=== PATIENT | female | born 1990 | race Caucasian/White ===

== ENCOUNTER 2016-09-03 03:27 | Emergency (ER) | payer OTHER ==
--- NOTE | 2016-09-03 05:20 | ED CLINICAL REPORT ---
Clinical Report - Physicians/Mid Levels [facility] [address] [place] [address] 09/03/2016 3:29 Patient: NIKITA HOOD Time Seen: 03:59. Arrived- By private vehicle. Historian- patient. HISTORY OF PRESENT ILLNESS Chief Complaint: ABDOMINAL PAIN. It is described as "pain" and it is described as located in the upper abdomen. At its maximum, severity described as 8 / 10. When seen in the E.D., severity described as 8 / 10. This started last night and is still present. It was abrupt in onset and has been constant and waxing/waning. The patient has had nausea and loss of appetite. No vomiting or diarrhea. No recent travel. Similar symptoms previously: Several times. Diagnosis: urinary tract infection. REVIEW OF SYSTEMS Last normal menstrual period- 1 month ago. No constipation or black stools. Last bowel movement: yesterday. She is not breast feeding. All systems otherwise negative, except as recorded above. PAST HISTORY PCP - Drown. Problems: Hepatitis C carrier. Hepatitis. Additional Surgeries: . Medications: Methadone HCl Oral 142mg, daily. Allergies: No Known Drug Allergy. SOCIAL HISTORY Current every day heavy tobacco smoker (cigarette)- less than 1 pack per day. FAMILY HISTORY Denies family medical history. ADDITIONAL NOTES The nursing notes have been reviewed. PHYSICAL EXAM Vital Signs: 09/03/2016 03:50 BP: 125/72. HR: 61. RR: 16. O2 saturation: 98%. Temp: 98.8 F. Pain level now: 8/10. Have been reviewed. Appearance: Alert. Eyes: Pupils equal, round and reactive to light. ENT: Pharynx normal. Neck: Normal inspection. Neck supple. CVS: Normal heart rate and rhythm. Heart sounds normal. Respiratory: No respiratory distress. Breath sounds normal. Abdomen: Soft and nontender. Bowel sounds normal. No organomegaly. No mass. Back: Normal inspection. Skin: Skin warm and dry. Normal skin color. Normal skin turgor. Extremities: Extremities exhibit normal ROM. No lower extremity edema. LABS, X-RAYS, AND EKG Laboratory Tests: UA-Culture if indicated: (CATHRYN: 09/03/2016 04:00) ( [facility] [place] 09/03/2016 04:43) Final results Test Result Flag Units (Reference) URINE COLOR YELLOW URINE APPEARANCE CLEAR URINE GLUCOSE NEGATIVE (NEGATIVE) URINE BILIRUBIN NEGATIVE (NEGATIVE) URINE KETONE NEGATIVE (NEGATIVE) URINE SPECIFIC GRAVITY 1.020 (1.010-1.030) URINE PH 7.0 (5.0-8.0) URINE PROTEIN NEGATIVE (NEGATIVE) URINE UROBILINOGEN 0.2 EU/dL (0.2-1.0) URINE NITRITE NEGATIVE (NEGATIVE) URINE BLOOD NEGATIVE (NEGATIVE) URINE LEUK ESTERASE NEGATIVE (NEGATIVE) URINE RBC 0-1 rbc/hpf (0-1) URINE WBC 0-1 wbc/hpf (0-1) URINE EPITHELIAL CELLS 0-1 EPI/hpf (0-5) URINE BACTERIA NONE SEEN (NONE SEEN) URINE COMMENT CULT NOT INDICATED URINE CULTURES ARE SET-UP BASED ON THE FOLLOWING CRITERIA:POSITIVE NITRITEPOSITIVE LEUKOCYTE ESTERASEGREATER THAN 10 WHITE BLOOD CELLSMODERATE (2+) OR GREATER BACTERIA Urine: (CATHRYN: 09/03/2016 04:00) ( [facility] 09/03/2016 04:47) Final results Test Result Flag Units (Reference) URINE NEGATIVE CBC w Diff: (CATHRYN: 09/03/2016 04:30) ( [facility] [place] 09/03/2016 04:41) Final results Test Result Flag Units (Reference) WHITE BLOOD COUNT 8.2 K/uL (4.5-11.5) RED BLOOD COUNT 5.55 H M/uL (4.00-5.20) HEMOGLOBIN 16.1 H gm/dL (12.0-16.0) HEMATOCRIT 49.1 H % (36.0-46.0) MEAN CELL VOLUME 89 fL (80-100) MEAN CORPUSCULAR HGB 29 pg (26-34) MEAN CORPUSCULAR HGB CONC 33 g/dL (31-37) RED CELL DISTRIBUTION WIDTH 14.1 % (11.6-14.8) PLATELET COUNT 237 K/uL (150-400) NEUTROPHIL % 56.4 % (50-75) LYMPH % 32.3 % (25-40) MONO % 4.6 % (3-14) EOSINOPHIL % 6.0 H % (0-4) BASOPHIL % 0.7 % (0-2) Urine Drug Screen: (CATHRYN: 09/03/2016 04:00) ( [facility] [place]/03/2016 04:59) Final results Test Result Flag Units (Reference) AMPHETAMINE/METHAMPHETAMINE NEGATIVE (NEGATIVE) BARBITURATE NEGATIVE (NEGATIVE) BENZODIAZEPINE NEGATIVE (NEGATIVE) CANNABINOID NEGATIVE (NEGATIVE) COCAINE NEGATIVE (NEGATIVE) ECSTASY NEGATIVE (NEGATIVE) METHADONE POSITIVE H (NEGATIVE) OPIATE NEGATIVE (NEGATIVE) The urine drug screen is a qualitative screening test fordrug overdose and abuse. All screen results should beconsidered as presumptive.Drugs screened for are as follows:BenzodiazepinesCocaineAmphetamines/MetamphetaminesTHC (Tetrahydrocannabinol)OpiatesBarbituratesEcstasyMethadonePositive results are unconfirmed. For confirmation, notifythe lab for the specimen to be sent to the reference lab.All confirmations must be performed by a differentmethodology.The ingestion of natural herbal and plant productscontaining Ephedra/Ephedra metabolites can produce in urineone or more substances capable of cross reacting withamphetamine/methamphetamine immunoassays. These testsprovide a preliminary result only. A more specificalternative chemical method must be used to obtain aconfirmed analytical result. CMP: (CATHRYN: 09/03/2016 04:30) ( [facility] [place] 09/03/2016 04:58) Final results Test Result Flag Units (Reference) GLUCOSE 93 mg/dL (70-110) BUN 17 mg/dL (7-18) CREATININE 0.8 mg/dL (0.6-1.3) Estimated GFR >60 mL/min Estimated GFR- >60 mL/min Note: Persistent reduction over 3 months in eGFR<60 mL/min/1.73 m2 defines CKD. Patients with eGFR values>=60 mL/min/1.73 m2 may also have CKD if evidence ofpersistent proteinuria. Additional information may be foundat www.kidney.org. SODIUM 142 mmol/L (136-145) POTASSIUM 4.2 mmol/L (3.5-5.1) CHLORIDE 107 mmol/L (98-107) CARBON DIOXIDE 25 mmol/L (21-32) CALCIUM 9.4 mg/dL (8.5-10.1) TOTAL PROTEIN 7.2 g/dL (6.4-8.2) ALBUMIN 3.7 g/dL (3.3-5.0) BILIRUBIN, TOTAL 0.4 mg/dL (0.0-1.0) ALKALINE PHOSPHATASE 58 U/L (46-116) AST (SGOT) 18 U/L (15-37) ALT (SGPT) 26 U/L (12-78) LIPASE 82 U/L (73-393) AMYLASE 29 U/L (25-115) . PROGRESS AND PROCEDURES Course of Care: 05:20 09/03/16. I review the results the patient's studies with her. We discussed potential benefits and risks of CT imaging. After this discussion, the patient requested that CT imaging not be performed. She acknowledges the risk of a missed or erroneous diagnosis. However, she says that she is feeling better, has no further pain and her abdomen was nontender on examination. The patient's symptoms are now gone. Vital signs have been reviewed. Alert. No acute distress. Breath sounds normal. No respiratory distress. Normal heart rate and rhythm. Heart sounds normal. Abdomen soft and nontender. Skin warm and dry. Patient/family counseled. Old medical records reviewed. Disposition: Discharged. Condition: stable. CLINICAL IMPRESSION Acute abdominal pain of unknown cause, now resolved. Possible acute gastritis INSTRUCTIONS Drink plenty of fluids. Avoid alcohol and NSAIDS. NSAIDS include aspirin, ibuprofen (Advil) and naproxen (Aleve). Avoid salty and spicy foods. Warnings: GENERAL WARNINGS: Return or contact your physician immediately if your condition worsens or changes unexpectedly, if not improving as expected, or if other problems arise. Prescription Medications: Prilosec 20 mg capsules: Take 1 capsule orally once daily. Dispense fifteen (15). No refills. Substitution is permissible. Follow-up: Follow up with your doctor tomorrow. Call for an appointment. Follow up with a soaker soda worker- as recommended by your primary care physician. Understanding of the discharge instructions verbalized by patient. (Electronically signed by Yves Guadalupe MD 09/03/2016 7:55)
--- NOTE | 2016-09-03 05:20 | ED NURSING NOTES ---
Clinical Report - Nurses [facility] [address] [place] [address] 09/03/2016 3:29 Patient: NIKITA HOOD TRIAGE Triage time 03:50. Acuity: LEVEL 3. Chief Complaint: ABDOMINAL PAIN and NAUSEA. 03:56. Alert. --03:57 Leif Vora R.N. 03:50 09/03/16. BP: 125/72. HR: 61. RR: 16. O2 saturation: 98% on room air. Temp: 98.8 F. Pain level now: 03/20. --03:57 Leif Vora R.N. Weight: 68 kg stated. Height/Length: 65 inches Per Patient. BMI: 25. --03:54 Leif Vora R.N. Medications Methadone HCl Oral 142mg, daily. --03:53 Leif Vora R.N. Medication/allergy information source: the patient. --03:57 Leif Vora R.N. Allergies No Known Drug Allergy. --03:53 Leif Vora R.N. History Arrived by private vehicle. Historian: patient. Unaccompanied. Primary physician (Lauren). This started last night. ( Patient reports bilateral lower quadrant ABD pain that started last night). Treatment VISITOR SERVICE ASSISTANT: None. PAST MEDICAL HX: Immunizations: up-to-date. Last normal menstrual period was 4 weeks ago. SOCIAL HX: Current every day heavy tobacco smoker- less than 1 pack per day. No alcohol use or drug use. No recent travel. No infectious disease exposure. ABUSE ASSESSMENT: No report of abuse. FALL RISK ASSESSMENT: Fall risk assessment completed. No fall risk identified. NUTRITIONAL RISK ASSESSMENT: The nutritional risk assessment revealed no deficiencies. FUNCTIONAL ASSESSMENT: Functional assessment: no impairments noted. LEARNING NEEDS ASSESSMENT: The learning needs assessment revealed no barriers. SKIN INTEGRITY ASSESSMENT: Skin integrity risk assessment completed. No skin integrity risk identified. --03:57 Leif Vora R.N. PROBLEMS: Hepatitis. --03:54 Leif Vora R.N. ADDITIONAL SURGERIES: . --03:54 Leif Vora R.N. Interventions ID band on patient. To treatment room. --03:57 Leif Vora R.N. PHYSICAL ASSESSMENT 03:48. Ambulatory to room. Patient gowned. GENERAL / NEURO / PSYCH: Alert. Oriented X 4. HEENT: Mucous membranes are pink. RESPIRATORY: Respirations not labored. GI / : Abdomen soft. Bowel sounds within normal limits. SKIN: Skin is warm and dry. --03:57 Leif Vora R.N. NURSING PROGRESS NOTES 03:48. Patient ID band checked for patient name and birthdate: patient confirmed. Clean catch urine collected with return of yellow-colored clear urine; sample sent to lab for urinalysis and HCG. Specimen labeled in the presence of the patient. --03:58 Leif Vora R.N. 04:27 09/03/2016 Two (2) unsuccessful IV access attempts including the right forearm and left antecubital space. --04:37 Leif Vora R.N. 04:32 09/03/2016 Site #1 started via IV in the left forearm with an 22g angiocath, with aseptic technique and good blood return. Blood drawn: rainbow set. Labeled in the presence of the patient and sent to the lab. Saline lock flushed with 10 mL saline (by Adry SHEPPARD). --04:38 Leif Vora R.N. 04:34 09/03/2016 Started bag #1 1000 mL IV Fluids IV NS (Saline); at 500 mL/hr over 2 hour(s) via site #1 --04:39 Leif Vora R.N. 04:35 09/03/2016 Zofran (Ondansetron HCl) IVP 4 mg given over 2 minute(s) via site #1. Allergies verified and confirmed 5 rights. IV patency established. IV site checked: no pain, redness, or swelling. IV flushed thoroughly pre- and post-medication administration. --04:40 Leif Vora R.N. 04:37 09/03/2016 PROTONIX 40MG (Pantoprazole Sodium) IVP 40 mg given over 2 minute(s) via site #1. Allergies verified and confirmed 5 rights. IV patency established. IV site checked: no pain, redness, or swelling. IV flushed thoroughly pre- and post-medication administration. --04:42 Leif Vora R.N. 05:22. The patient is calm and resting quietly. Overall patient status is improved- she states feels better. SKIN: Skin is warm and dry. Skin color within normal limits. --05:25 Leif Vora R.N. DISPOSITION / DISCHARGE 05:18 09/03/2016 IV Fluids IV NS Discontinued: bag #1 STOPPED upon discharge. Total amount infused: 450 mL. IV patency established. IV site checked: no pain, redness, or swelling. IV flushed thoroughly. --05:22 Leif Vora R.N. 05:19 09/03/2016 Site #1 removed upon discharge. Catheter intact. Bandage applied. --05:22 Leif Vora R.N. Departure time: 05:24. Condition at departure: stable. No learning barriers present. Discharge instructions provided and reviewed with the patient. Reviewed medication(s) side effects, precautions, dosing and course information. Prescription(s) given to the patient. Patient verbalized understanding. Written instructions provided in French. The patient was discharged home and unaccompanied at time of discharge. She left the Emergency Department ambulatory and via private vehicle. Patient driving. FALL RISK ASSESSMENT: Fall risk assessment completed. No fall risk identified. --05:25 Leif Vora R.N. 05:20 09/03/16. BP: 95/67. HR: 62. RR: 15. O2 saturation: 100%. Pain level now: 08/20. --05:25 Leif Vora R.N. Locked/Released at 09/03/2016 5:25 by Leif Vora R.N.
--- NOTE | 2016-09-03 05:20 | ED ORDER SUMMARY ---
..... Patient: NIKITA HOOD OrderSheet [facility] VisitID: [id number] [place] [address] 26y, F Registration Date/Time: 09/03/2016 ORDER SHEET Weight: 68.0 kg (stated) Allergies: No Known Drug Allergy GENERAL ORDERS: CBC w Diff Urgent (04:09/03/2016 Hardeep QUISPE) (Ack 4:01 LMuller) (4:42 JQuivey R.N.) CMP Urgent (04:09/03/2016 Hardeep QUISPE) (Ack 4:01 LMuller) (4:42 JQuivey R.N.) UA-Culture if indicated Urgent (:09/03/2016 Hardeep QUISPE) (Ack 4:01 LMuller) (4:42 JQuivey R.N.) Amylase Urgent (04:09/03/2016 Hardeep QUISPE) (Ack 4:01 LMuller) (4:42 JQuivey R.N.) Lipase Urgent (04:09/03/2016 Hardeep QUISPE) (Ack 4:01 LMuller) (4:42 JQuivey R.N.) Urine Urgent (04:09/03/2016 Hardeep QUISPE) (4:42 JQuivey R.N.) Urine Drug Screen Urgent (04:38 09/03/2016 Hardeep QUISPE) (4:42 JQuivey R.N.) MEDICATION ORDERS: IV FLUIDS: IV NS : initial bolus 500 mL (1000 mL/hr), then 125 mL/hr for 4h (NOW); Urgent (04:09/03/2016 Hardeep QUISPE) (Ack 4:20 RCollier R.N.) (4:39 JQuivey R.N.) Zofran IV 4 mg (NOW) (04:09/03/2016 Hardeep QUISPE) (Ack 4:20 RCollier R.N.) (4:40 JQuivey R.N.) IV Saline Lock (04:09/03/2016 Hardeep QUISPE) (Ack 4:20 RCollier R.N.) (4:38 Evan Nelson) Protonix IVP 40mg 40 mg (Mix in NS 10ml over 2min) (04:07 09/03/2016 Hardeep QUISPE) (Ack 4:20 Leena Nelson) (4:42 Evan Nelson) ORDER SHEET NOTES: [Electronically signed by Leif Vora R.N. (05:25 09/03/2016)] [Electronically signed by Yves Guadalupe MD (07:55 09/03/2016)] [Electronically locked/signed by Leif Vora R.N. (05:25 09/03/2016)]
--- NOTE | 2016-09-03 05:20 | ED ORDER SUMMARY ---
..... Patient: NIKITA HOOD OrderSheet [facility] VisitID: [id number] [place] [address] 26y, F Registration Date/Time: 09/03/2016 ORDER SHEET Weight: 68.0 kg (stated) Allergies: No Known Drug Allergy GENERAL ORDERS: CBC w Diff Urgent (04:09/03/2016 Hardeep QUISPE) (Ack 4:01 LMuller) (4:42 JQuivey R.N.) CMP Urgent (04:09/03/2016 Hardeep QUISPE) (Ack 4:01 LMuller) (4:42 JQuivey R.N.) UA-Culture if indicated Urgent (:09/03/2016 Hardeep QUISPE) (Ack 4:01 LMuller) (4:42 JQuivey R.N.) Amylase Urgent (04:09/03/2016 Hardeep QUISPE) (Ack 4:01 LMuller) (4:42 JQuivey R.N.) Lipase Urgent (04:09/03/2016 Hardeep QUISPE) (Ack 4:01 LMuller) (4:42 JQuivey R.N.) Urine Urgent (04:09/03/2016 Hardeep QUISPE) (4:42 JQuivey R.N.) Urine Drug Screen Urgent (04:38 09/03/2016 Hardeep QUISPE) (4:42 JQuivey R.N.) MEDICATION ORDERS: IV FLUIDS: IV NS : initial bolus 500 mL (1000 mL/hr), then 125 mL/hr for 4h (NOW); Urgent (04:09/03/2016 Hardeep QUISPE) (Ack 4:20 RCollier R.N.) (4:39 JQuivey R.N.) Zofran IV 4 mg (NOW) (04:09/03/2016 Hardeep QUISPE) (Ack 4:20 RCollier R.N.) (4:40 JQuivey R.N.) IV Saline Lock (04:09/03/2016 Hardeep QUISPE) (Ack 4:20 RCollier R.N.) (4:38 Evan Nelson) Protonix IVP 40mg 40 mg (Mix in NS 10ml over 2min) (04:07 09/03/2016 Hardeep QUISPE) (Ack 4:20 Leena Nelson) (4:42 Evan Nelson) ORDER SHEET NOTES: [Electronically signed by Leif Vora R.N. (05:25 09/03/2016)] [Electronically signed by Yves Guadalupe MD (07:55 09/03/2016)] [Electronically locked/signed by Leif Vora R.N. (05:25 09/03/2016)]
--- NOTE | 2016-09-03 05:20 | ED CLINICAL REPORT ---
Clinical Report - Physicians/Mid Levels [facility] [address] [place] [address] 09/03/2016 3:29 Patient: NIKITA HOOD Time Seen: 03:59. Arrived- By private vehicle. Historian- patient. HISTORY OF PRESENT ILLNESS Chief Complaint: ABDOMINAL PAIN. It is described as "pain" and it is described as located in the upper abdomen. At its maximum, severity described as 8 / 10. When seen in the E.D., severity described as 8 / 10. This started last night and is still present. It was abrupt in onset and has been constant and waxing/waning. The patient has had nausea and loss of appetite. No vomiting or diarrhea. No recent travel. Similar symptoms previously: Several times. Diagnosis: urinary tract infection. REVIEW OF SYSTEMS Last normal menstrual period- 1 month ago. No constipation or black stools. Last bowel movement: yesterday. She is not breast feeding. All systems otherwise negative, except as recorded above. PAST HISTORY PCP - Drown. Problems: Hepatitis C carrier. Hepatitis. Additional Surgeries: . Medications: Methadone HCl Oral 142mg, daily. Allergies: No Known Drug Allergy. SOCIAL HISTORY Current every day heavy tobacco smoker (cigarette)- less than 1 pack per day. FAMILY HISTORY Denies family medical history. ADDITIONAL NOTES The nursing notes have been reviewed. PHYSICAL EXAM Vital Signs: 09/03/2016 03:50 BP: 125/72. HR: 61. RR: 16. O2 saturation: 98%. Temp: 98.8 F. Pain level now: 8/10. Have been reviewed. Appearance: Alert. Eyes: Pupils equal, round and reactive to light. ENT: Pharynx normal. Neck: Normal inspection. Neck supple. CVS: Normal heart rate and rhythm. Heart sounds normal. Respiratory: No respiratory distress. Breath sounds normal. Abdomen: Soft and nontender. Bowel sounds normal. No organomegaly. No mass. Back: Normal inspection. Skin: Skin warm and dry. Normal skin color. Normal skin turgor. Extremities: Extremities exhibit normal ROM. No lower extremity edema. LABS, X-RAYS, AND EKG Laboratory Tests: UA-Culture if indicated: (CATHRYN: 09/03/2016 04:00) ( [facility] [place] 04:43) Final results Test Result Flag Units (Reference) URINE COLOR YELLOW URINE APPEARANCE CLEAR URINE GLUCOSE NEGATIVE (NEGATIVE) URINE BILIRUBIN NEGATIVE (NEGATIVE) URINE KETONE NEGATIVE (NEGATIVE) URINE SPECIFIC GRAVITY 1.020 (1.010-1.030) URINE PH 7.0 (5.0-8.0) URINE PROTEIN NEGATIVE (NEGATIVE) URINE UROBILINOGEN 0.2 EU/dL (0.2-1.0) URINE NITRITE NEGATIVE (NEGATIVE) URINE BLOOD NEGATIVE (NEGATIVE) URINE LEUK ESTERASE NEGATIVE (NEGATIVE) URINE RBC 0-1 rbc/hpf (0-1) URINE WBC 0-1 wbc/hpf (0-1) URINE EPITHELIAL CELLS 0-1 EPI/hpf (0-5) URINE BACTERIA NONE SEEN (NONE SEEN) URINE COMMENT CULT NOT INDICATED URINE CULTURES ARE SET-UP BASED ON THE FOLLOWING CRITERIA:POSITIVE NITRITEPOSITIVE LEUKOCYTE ESTERASEGREATER THAN 10 WHITE BLOOD CELLSMODERATE (2+) OR GREATER BACTERIA Urine: (CATHRYN: 09/03/2016 04:00) ( [facility] 09/03/2016 04:47) Final results Test Result Flag Units (Reference) URINE NEGATIVE CBC w Diff: (CATHRYN: 09/03/2016 04:30) ( [facility] [place] 09/03/2016 04:41) Final results Test Result Flag Units (Reference) WHITE BLOOD COUNT 8.2 K/uL (4.5-11.5) RED BLOOD COUNT 5.55 H M/uL (4.00-5.20) HEMOGLOBIN 16.1 H gm/dL (12.0-16.0) HEMATOCRIT 49.1 H % (36.0-46.0) MEAN CELL VOLUME 89 fL (80-100) MEAN CORPUSCULAR HGB 29 pg (26-34) MEAN CORPUSCULAR HGB CONC 33 g/dL (31-37) RED CELL DISTRIBUTION WIDTH 14.1 % (11.6-14.8) PLATELET COUNT 237 K/uL (150-400) NEUTROPHIL % 56.4 % (50-75) LYMPH % 32.3 % (25-40) MONO % 4.6 % (3-14) EOSINOPHIL % 6.0 H % (0-4) BASOPHIL % 0.7 % (0-2) Urine Drug Screen: (CATHRYN: 09/03/2016 04:00) ( [facility]/[facility] 04:59) Final results Test Result Flag Units (Reference) AMPHETAMINE/METHAMPHETAMINE NEGATIVE (NEGATIVE) BARBITURATE NEGATIVE (NEGATIVE) BENZODIAZEPINE NEGATIVE (NEGATIVE) CANNABINOID NEGATIVE (NEGATIVE) COCAINE NEGATIVE (NEGATIVE) ECSTASY NEGATIVE (NEGATIVE) METHADONE POSITIVE H (NEGATIVE) OPIATE NEGATIVE (NEGATIVE) The urine drug screen is a qualitative screening test fordrug overdose and abuse. All screen results should beconsidered as presumptive.Drugs screened for are as follows:BenzodiazepinesCocaineAmphetamines/MetamphetaminesTHC (Tetrahydrocannabinol)OpiatesBarbituratesEcstasyMethadonePositive results are unconfirmed. For confirmation, notifythe lab for the specimen to be sent to the reference lab.All confirmations must be performed by a differentmethodology.The ingestion of natural herbal and plant productscontaining Ephedra/Ephedra metabolites can produce in urineone or more substances capable of cross reacting withamphetamine/methamphetamine immunoassays. These testsprovide a preliminary result only. A more specificalternative chemical method must be used to obtain aconfirmed analytical result. CMP: (CATHRYN: 09/03/2016 04:30) ( [facility] 09/03/2016 04:58) Final results Test Result Flag Units (Reference) GLUCOSE 93 mg/dL (70-110) BUN 17 mg/dL (7-18) CREATININE 0.8 mg/dL (0.6-1.3) Estimated GFR >60 mL/min Estimated GFR- >60 mL/min Note: Persistent reduction over 3 months in eGFR<60 mL/min/1.73 m2 defines CKD. Patients with eGFR values>=60 mL/min/1.73 m2 may also have CKD if evidence ofpersistent proteinuria. Additional information may be foundat www.kidney.org. SODIUM 142 mmol/L (136-145) POTASSIUM 4.2 mmol/L (3.5-5.1) CHLORIDE 107 mmol/L (98-107) CARBON DIOXIDE 25 mmol/L (21-32) CALCIUM 9.4 mg/dL (8.5-10.1) TOTAL PROTEIN 7.2 g/dL (6.4-8.2) ALBUMIN 3.7 g/dL (3.3-5.0) BILIRUBIN, TOTAL 0.4 mg/dL (0.0-1.0) ALKALINE PHOSPHATASE 58 U/L (46-116) AST (SGOT) 18 U/L (15-37) ALT (SGPT) 26 U/L (12-78) LIPASE 82 U/L (73-393) AMYLASE 29 U/L (25-115) . PROGRESS AND PROCEDURES Course of Care: 05:20 09/03/16. I review the results the patient's studies with her. We discussed potential benefits and risks of CT imaging. After this discussion, the patient requested that CT imaging not be performed. She acknowledges the risk of a missed or erroneous diagnosis. However, she says that she is feeling better, has no further pain and her abdomen was nontender on examination. The patient's symptoms are now gone. Vital signs have been reviewed. Alert. No acute distress. Breath sounds normal. No respiratory distress. Normal heart rate and rhythm. Heart sounds normal. Abdomen soft and nontender. Skin warm and dry. Patient/family counseled. Old medical records reviewed. Disposition: Discharged. Condition: stable. CLINICAL IMPRESSION Acute abdominal pain of unknown cause, now resolved. Possible acute gastritis INSTRUCTIONS Drink plenty of fluids. Avoid alcohol and NSAIDS. NSAIDS include aspirin, ibuprofen (Advil) and naproxen (Aleve). Avoid salty and spicy foods. Warnings: GENERAL WARNINGS: Return or contact your physician immediately if your condition worsens or changes unexpectedly, if not improving as expected, or if other problems arise. Prescription Medications: Prilosec 20 mg capsules: Take 1 capsule orally once daily. Dispense fifteen (15). No refills. Substitution is permissible. Follow-up: Follow up with your doctor tomorrow. Call for an appointment. Follow up with a marine steward- as recommended by your primary care physician. Understanding of the discharge instructions verbalized by patient. (Electronically signed by Yves Guadalupe MD 09/03/2016 7:55)
--- NOTE | 2016-09-03 07:56 | ED MAR SUMMARY ---
..... Medication Administration Record [facility] [address] [place] [address] Patient: NIKITA HOOD Visit ID: [id number] 26y, F Weight: 68.0 kg Height/Length: 65 in BMI: 25 ALLERGIES: No Known Drug Allergy Start 04:34 09/03/2016 Leif Vora R.N., Stop 05:18 09/03/2016 Leif Vora R.N. Medication Administered: IV NS (SALINE), Dose: IV Fluids over 2 hour(s), Rate: 500 mL/hr, Dispensed: 1000 mL bag, Site: #1 left forearm. Medication Ordered: IV NS : initial bolus 500 mL (1000 mL/hr), then 125 mL/hr for 4h (NOW); Urgent. Given 04:35 09/03/2016 Leif Vora R.N. Medication Administered: ZOFRAN [IVP] (ONDANSETRON HCL), Dose: 4 mg IVP over 2 minute(s), Site: #1 left forearm. Medication Ordered: Zofran IV 4 mg (NOW). Given 04:37 09/03/2016 Leif Vora R.N. Medication Administered: PROTONIX 40MG [IVP] (PANTOPRAZOLE SODIUM), Dose: 40 mg IVP over 2 minute(s), Site: #1 left forearm. Medication Ordered: Protonix IVP 40mg 40 mg (Mix in NS 10ml over 2min).
--- NOTE | 2016-09-03 07:56 | ED MED RECONCILIATION SUMMARY ---
Patient: NIKITA HOOD Medication Reconciliation Report [facility] VisitID: [id number] [place] [address] 26y, F Registration Date/Time: 09/03/2016 Weight: 68.0 kg Height/Length: 65 in. BMI: 25.0 ALLERGIES: No Known Drug Allergy The patient's Home Medications are listed below: THE FOLLOWING MEDICATIONS NEED TO BE RECONCILED: Methadone HCl Oral 142mg, daily The source(s) of the original Home Medication information: patient The following Medications were given to the patient in the Emergency Department: IV NS IV Fluids bolus 0, then 500 mL/hr, administered: 09/03/2016 4:34:00 AM Zofran [IVP] IVP 4 mg, administered: 09/03/2016 4:35:00 AM PROTONIX 40MG [IVP] IVP 40 mg, administered: 09/03/2016 4:37:00 AM The following Medications were prescribed to the patient: Prilosec 20 mg capsules: Take 1 capsule orally once daily. Dispense fifteen (15). No refills. Substitution is permissible. -- Yves Guadalupe MD
--- NOTE | 2016-09-03 07:56 | ED MED RECONCILIATION SUMMARY ---
Patient: NIKITA HOOD Medication Reconciliation Report [facility] VisitID: [id number] [place] [address] 26y, F Registration Date/Time: 09/03/2016 Weight: 68.0 kg Height/Length: 65 in. BMI: 25.0 ALLERGIES: No Known Drug Allergy The patient's Home Medications are listed below: THE FOLLOWING MEDICATIONS NEED TO BE RECONCILED: Methadone HCl Oral 142mg, daily The source(s) of the original Home Medication information: patient The following Medications were given to the patient in the Emergency Department: IV NS IV Fluids bolus 0, then 500 mL/hr, administered: 09/03/2016 4:34:00 AM Zofran [IVP] IVP 4 mg, administered: 09/03/2016 4:35:00 AM PROTONIX 40MG [IVP] IVP 40 mg, administered: 09/03/2016 4:37:00 AM The following Medications were prescribed to the patient: Prilosec 20 mg capsules: Take 1 capsule orally once daily. Dispense fifteen (15). No refills. Substitution is permissible. -- Yves Guadalupe MD
--- NOTE | 2016-09-03 07:56 | ED MAR SUMMARY ---
..... Medication Administration Record [facility] [address] [place] [address] Patient: NIKTIA HOOD Visit ID: [id number] 26y, F Weight: 68.0 kg Height/Length: 65 in BMI: 25 ALLERGIES: No Known Drug Allergy Start 04:34 09/03/2016 Leif Vora R.N., Stop 05:18 09/03/2016 Leif Vora R.N. Medication Administered: IV NS (SALINE), Dose: IV Fluids over 2 hour(s), Rate: 500 mL/hr, Dispensed: 1000 mL bag, Site: #1 left forearm. Medication Ordered: IV NS : initial bolus 500 mL (1000 mL/hr), then 125 mL/hr for 4h (NOW); Urgent. Given 04:35 09/03/2016 Leif Vora R.N. Medication Administered: ZOFRAN [IVP] (ONDANSETRON HCL), Dose: 4 mg IVP over 2 minute(s), Site: #1 left forearm. Medication Ordered: Zofran IV 4 mg (NOW). Given 04:37 09/03/2016 Leif Vora R.N. Medication Administered: PROTONIX 40MG [IVP] (PANTOPRAZOLE SODIUM), Dose: 40 mg IVP over 2 minute(s), Site: #1 left forearm. Medication Ordered: Protonix IVP 40mg 40 mg (Mix in NS 10ml over 2min).
--- NOTE | 2016-09-03 07:56 | ED DISCHARGE INSTRUCTIONS ---
Patient: NIKITA HOOD General Instructions [facility] VisitID: [id number] [place] [address] 26y, F Registration Date/Time: 09/03/2016 Acute abdominal pain of unknown cause, now resolved. INSTRUCTIONS Drink plenty of fluids. Avoid alcohol and NSAIDS. NSAIDS include aspirin, ibuprofen (Advil) and naproxen (Aleve). Avoid salty and spicy foods. Warnings: GENERAL WARNINGS: Return or contact your physician immediately if your condition worsens or changes unexpectedly, if not improving as expected, or if other problems arise. Prescription Medications: Prilosec 20 mg capsules: Take 1 capsule orally once daily. Dispense fifteen (15). No refills. Substitution is permissible. Follow-up: Follow up with your doctor tomorrow. Call for an appointment. Follow up with a digital production artist- as recommended by your primary care physician. Understanding of the discharge instructions verbalized by patient. ADDITIONAL INFORMATION Abdominal Pain, Unknown Cause (Female) The exact cause of your abdominal (stomach) pain is not certain. This does not mean that this is something to worry about, or the right tests were not done. Everyone likes to know the exact cause of the problem, but sometimes with abdominal pain, there is no clear-cut cause, and this could be a good thing. The good news is that your symptoms can be treated, and you will feel better. Your condition does not seem serious now; however, sometimes the signs of a serious problem may take more time to appear. For this reason,it is important for you to watch for any new symptoms, problems,or worsening of your condition. Over the next few days, the abdominal pain may come and go, or be continuous. Other common symptoms can include nausea and vomiting. Sometimes it can be difficult to tell if you feel nauseous, you may just feel bad and not associate that feeling with nausea. Constipation, diarrhea, and a fever may go along with the pain. The pain may continue even if treated correctly over the following days. Depending on how things go, sometimes the cause can become clear and may require further or different treatment. Additional evaluations, medications, or tests may be needed. Home care Your health care provider may prescribe medications for pain, symptoms, or an infection. Follow the health care provider's instructions for taking these medications. General care Rest until your next exam. No strenuous activities. Try to find positions that ease discomfort. A small pillow placed on the abdomen may help relieve pain. Something warm on your abdomen (such as a heating pad) may help, but be careful not to burn yourself. Diet Do not force yourself to eat, especially if having cramps, vomiting, or diarrhea. Water is important so you do not get dehydrated. Soup may also be good. Sports drinks may also help, especially if they are not too acidic. Make sure you don't drink sugary drinks as this can make things worse. Take liquids in small amounts. Do not guzzle them. Caffeine sometimes makes the pain and cramping worse. Avoid dairy products if you have vomiting or diarrhea. Don't eat large amounts at a time. Wait a few minutes between bites. Eat a diet low in fiber (called a low-residue diet). Foods allowed include refined breads, white rice, fruit and vegetable juices without pulp, tender meats. These foods will pass more easily through the intestine. Avoid whole-grain foods, whole fruits and vegetables, meats, seeds and nuts, fried or fatty foods, dairy, alcohol and spicy foods until your symptoms go away. Follow-up care Follow up with your health care provider as instructed, or if your pain does not begin to improve in the next 24 hours. When to seek medical care Seek prompt medical care if any of the following occur: Pain gets worse or moves to the right lower abdomen New or worsening vomiting or diarrhea Swelling of the abdomen Unable to pass stool for more than three days Fever of 100.4F (38C) or higher, or as directed by your healthcare provider. Blood in vomit or bowel movements (dark red or black color) Jaundice (yellow color of eyes and skin) Weakness, dizziness Chest, arm, back, neck or jaw pain Unexpected vaginal bleeding or missed period Call 911 Call emergency services if any of the following occur: Trouble breathing Confusion Fainting or loss of consciousness Rapid heart rate Seizure Gastritis Versus Ulcer (No Antibiotic Tx) The symptoms of gastritis and peptic ulcer are very similar. Both can cause a dull ache or burning pain in the upper abdomen. Other symptoms include nausea, vomiting, loss of appetite, and belching or bloating. Blood in the vomit or stools (red or black) is a sign of bleeding in the stomach. This requires immediate medical attention. A Peptic Ulcer is an open sore in the lining of the stomach or duodenum (upper intestine). The most common cause of peptic ulcer disease is a bacterial infection (H pylori) in the stomach. Another common cause is taking anti-inflammatory medications (such as ibuprofen, prednisone, and aspirin). Gastritis is an irritation of the stomach lining. It can be acute (recent) or chronic (lasting a long time). Gastritis can be caused by overuse of alcohol or anti-inflammatory medications (such as aspirin, ibuprofen, prednisone). H pyloriinfection can also cause chronic gastritis. Tests for H pyloriare used to screen for bacterial infection. If no infection is found, ulcer and gastritis can be treated by stopping the cause, such as anti-inflammatory medications, alcohol, caffeine, and tobacco, and treating with antacids plus an acid sergio medication. If H pylori infection is found, antibiotics will be prescribed along with an acid sergio. Persons 55 years and older may undergo other tests before treatment is started. Two common tests are used to evaluate your symptoms. An upper GI series is an x-ray taken after you drink a chalky liquid called barium. This coats the stomach and allows an ulcer to show up on the x-ray. Another test is called endoscopy during which a long thin tube called an endoscope is passed down your throat to the stomach. A camera at the end of the scope allows the doctor to view inside the stomach to check the cause of your symptoms. Home Care: Take the prescribed acid sergio medication for the full course of treatment even if you begin to feel better sooner. This medication can take up to several days to fully control your symptoms. If you cant afford the prescribed medication, you can try [id number] acid blockers, such as Pepcid AC, Tagamet, Zantac, or Aciphex. If these do not relieve your symptoms, a stronger acid-sergio can be tried, such as Prilosec OTC. If you have been prescribed an antibiotic to treat H pyloriinfection, finish the full course of medication. Do so even if you begin to feel better sooner. If you stop the medication too soon, the infection can return and be harder to treat. You can use antacids, such as Tums, Rolaids, Mylanta, or Maalox, for pain. This will be useful the first few days after starting acid blockers when the blockers havent started working yet. Follow the directions on the label. Liquid antacids may work better than tablets. Note that antacids can interfere with absorption of certain medications. Specifically, do not take Tagamet (cimetidine), Zantac (ranitidine), or Carafate (sucralfate) within 1 hour of taking an antacid. Talk with your pharmacist if you have any questions. Although foods do not cause an ulcer, symptoms can be worsened by certain foods. Limit or avoid fatty, fried, and spicy foods, as well as coffee, chocolate, mint, and foods with high acid content such as tomatoes and citrus fruit and juices (orange, grapefruit, lemon). Avoid alcohol, caffeine, and tobacco, which can delay healing. Avoid aspirin and anti-inflammatory medications such as ibuprofen (Advil, Motrin) and naproxen (Naprosyn, Aleve). Acetaminophen (Tylenol) is safe to use. Do not take more than the amount listed on the label. Follow Up with your doctor or as advised. Further testing may be needed. If you do not begin to improve over the next 4 days, contact your doctor. If you had tests, youll be notified of any new findings that affect your care. Get Prompt Medical Attention if any of the following occur: Stomach pain gets worse or moves to the lower right abdomen (appendix area) Chest pain appears or gets worse, or spreads to the back, neck, shoulder, or arm Frequent vomiting (cant keep down liquids) Blood in the stool or vomit (red or black in color) Feeling weak or dizzy, fainting, or trouble breathing Fever of 100.4F (38C) or higher, or as directed by your healthcare provider [place] Diet A bland diet is used for patients with an upset stomach. It consists of foods that are mild and easy to digest. It is better to eat small frequent meals rather than three large meals a day. BEVERAGES OK: Fruit juices, non-caffeinated teas and coffee, non-carbonated gonzalez AVOID: Carbonated beverage, caffeinated tea and coffee, all alcoholic beverages BREAD OK: Refined white, wheat or rye bread, michael or soda crackers, [place] toast, plain rolls, bagels AVOID: Whole-grain bread CEREAL OK: Refined cereals: cooked or ready to eat AVOID: Whole grain cereals and granola, or those containing bran, seeds or nuts DESSERTS OK: Peanut butter and all others except those to "avoid" AVOID: Chocolate, cocoa, coconut, popcorn, nuts, seeds, jam, marmalade FRUITS OK: Canned, cooked, frozen or fresh fruits without seeds or tough skin AVOID: Olives, skin and seeds of fruit MEATS OK: All fresh or preserved meat, fish and fowl AVOID: Any that are prepared with those spices to "avoid" CHEESE & EGGS OK: Eggs, cottage cheese, cream cheese, other cheeses AVOID: All cheeses made with those spices to "avoid" POTATOES & PASTA OK: Potato, rice, macaroni, noodles, spaghetti AVOID: None SOUPS OK: All soups without heavy seasoning AVOID: Soups made with those spices to "avoid" VEGETABLES OK: Canned, cooked, fresh or frozen mildly flavored vegetables without seeds, skins or coarse fiber AVOID: Vegetables prepared with those spices to "avoid"; skin and seeds of vegetables and those with coarse fiber SPICES OK: Salt, lemon and makah juice, vinegar, all extracts, kassy, cinnamon, thyme, mace, allspice, paprika AVOID: Deposit powder, cloves, pepper, seed spices, garlic, gravy pickles, highly seasoned salad dressings Omeprazole Magnesium Gastro-resistant tablet What is this medicine? OMEPRAZOLE (oh ME pray zol) prevents the production of acid in the stomach. It is used to treat the symptoms of heartburn. You can buy this medicine without a prescription. This product is not for long-term use, unless otherwise directed by your doctor or health mall plant caretaker. How should I use this medicine? Take this medicine by mouth. Follow the directions on the product label. If you are taking this medicine without a prescription, take one tablet every day. Do not use for longer than 14 days or repeat a course of treatment more often than every 4 months unless directed by a doctor or healthcare professional. Take your dose at regular intervals every 24 hours. Swallow the tablet whole with a drink of water. Do not crush, break or chew. This medicine works best if taken on an empty stomach 30 minutes before breakfast. If you are using this medicine with the prescription of your doctor or healthcare professional, follow the directions you were given. Do not take your medicine more often than directed. Talk to your foreign language professor regarding the use of this medicine in children. Special care may be needed. What side effects may I notice from receiving this medicine? Side effects that you should report to your doctor or health mall plant caretaker as soon as possible: allergic reactions like skin rash, itching or hives, swelling of the face, lips, or tongue bone, muscle or joint pain breathing problems chest pain or chest tightness dark yellow or brown urine diarrhea dizziness fast, irregular heartbeat feeling faint or lightheaded fever or sore throat muscle spasm palpitations redness, blistering, peeling or loosening of the skin, including inside the mouth seizures tremors unusual bleeding or bruising unusually weak or tired yellowing of the eyes or skin Side effects that usually do not require medical attention (Report these to your doctor or health mall plant caretaker if they continue or are bothersome.): constipation dry mouth headache loose stools nausea What may interact with this medicine? Do not take this medicine with any of the following medications: atazanavir clopidogrel nelfinavir This medicine may also interact with the following medications: ampicillin certain medicines for anxiety or sleep certain medicines that treat or prevent blood clots like warfarin cyclosporine diazepam digoxin disulfiram iron salts phenytoin prescription medicine for fungal or yeast infection like itraconazole, ketoconazole, voriconazole saquinavir tacrolimus What if I miss a dose? If you miss a dose, take it as soon as you can. If it is almost time for your next dose, take only that dose. Do not take double or extra doses. Where should I keep my medicine? Keep out of the reach of children. Store at room temperature between 20 and 25 degrees C (68 and 77 degrees F). Protect from light and moisture. Throw away any unused medicine after the expiration date. What should I tell my health care provider before I take this medicine? They need to know if you have any of these conditions: black or bloody stools chest pain difficulty swallowing have had heartburn for over 3 months have heartburn with dizziness, lightheadedness or sweating liver disease stomach pain unexplained weight loss vomiting with blood wheezing an unusual or allergic reaction to omeprazole, other medicines, foods, dyes, or preservatives or trying to get breast-feeding What should I watch for while using this medicine? It can take several days before your heartburn gets better. Check with your doctor or health mall plant caretaker if your condition does not start to get better, or if it gets worse. Do not treat diarrhea with over the counter products. Contact your doctor if you have diarrhea that lasts more than 2 days or if it is severe and watery. Do not treat yourself for heartburn with this medicine for more than 14 days in a row. You should only use this medicine for a 2-week treatment period once every 4 months. If your symptoms return shortly after your therapy is complete, or within the 4 month time frame, call your doctor or health mall plant caretaker. You have been given the following additional information: Abdominal Pain, Unknown Cause, (Female) Gastritis Vs. Ulcer Diet, [place] (Adult) Omeprazole Magnesium Gastro-resistant tablet (Electronically signed by Yves Guadalupe MD 09/03/2016 7:55)
== END 2016-09-03 05:24 | disposition home or self-care (01) ==
LOC: ED SRH 03:27
DX: R10.10 Upper abdominal pain, unspecified (principal); R11.0 Nausea; F17.210 Nicotine dependence, cigarettes, uncomplicated
CPT/HCPCS: 90004; 90100; 92235; 92530; 92760; 92761; 92762; 92763; 92764; 92765; 92766; 92767; 93070; 95059